=== PATIENT | male | born 1985 | race Caucasian/White ===

== ENCOUNTER 2017-09-30 16:28 | Emergency (ER) | payer OTHER ==
[2017-09-30 16:42] VITALS: RESP 16; TEMP 99; O2SAT 95
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
[2017-09-30] MEDS ORDERED: IBUPROFEN 600 MG TAB PO ONE (17:33)
[2017-09-30 18:17] VITALS: BP 131/101; PULSE 63
== END 2017-09-30 18:17 | disposition home or self-care (01) ==
DX: S52.124A Nondisplaced fracture of head of right radius, initial encounter for closed fracture (principal); S20.211A Contusion of right front wall of thorax, initial encounter; V18.0XXA Pedal cycle driver injured in noncollision transport accident in nontraffic accident, initial encounter; Y92.410 Unspecified street and highway as the place of occurrence of the external cause; Y99.8 Other external cause status; Y93.55 Activity, bike riding
CPT/HCPCS: A4565